=== PATIENT | male | born 1945 | race Caucasian/White ===

== ENCOUNTER → 2020-11-18 | Outpatient (CLI) | payer MEDICARE ==
[~2020-11-18] MED LIST: ALFU10TA PO; BENA1TAB11 PO; CALC200T3 PO; SIMV40TA20 PO; VIT1CAPS42 PO; aspirin PO; magnesium PO
[2020-11-18 10:41] LABS: BASOPHILS % (AUTO) 1 % (0-1); EOSINOPHILS % (AUTO) 2 % (1-7); LYMPHOCYTES % (AUTO) 21 % (22-44); MD NO; MEAN CORPUSCULAR HEMOGLOBIN 33.3 pg (27.5-34.5); MEAN CORPUSCULAR HGB CONC 34.3 g/dL (33.2-36.2); MEAN PLATELET VOLUME 7.7 fL (7.4-10.4); MONOCYTES % (AUTO) 11 % (2-9); NEUTROPHILS % (AUTO) 65 % (42-75); PLATELET COUNT 187 x10^3/uL (130-400); RED BLOOD COUNT 4.18 x10^6/uL (4.38-5.82)
[2020-11-18 10:43] LABS: MICROSCOPIC NOT IND
[2020-11-18 10:49] LABS: ALBUMIN 3.8 g/dL (3.4-5.0); ANION GAP 3 mmol/L (5-15); CALCIUM 8.7 mg/dL (8.5-10.1); CHLORIDE 112 mmol/L (98-107)
[2020-11-18 10:52] LABS: ALANINE AMINOTRANSFERASE 24 U/L (12-78); ALKALINE PHOSPHATASE 41 U/L (45-117); BILIRUBIN,TOTAL 1.5 mg/dL (0.2-1.0); CREATININE 1.12 mg/dL (0.7-1.3); INTERNATIONAL NORMALIZED RATIO 1.06 (0.93-1.1); PROTHROMBIN TIME 11.3 Seconds (9.6-11.5); TOTAL PROTEIN 6.7 g/dL (6.4-8.2)
== END | disposition home or self-care (01) ==
LOC: STAR 08:57
PROVIDERS: ATTEND Urology
DX: Z01.818 Encounter for other preprocedural examination (principal); N40.1 Benign prostatic hyperplasia with lower urinary tract symptoms; I44.0 Atrioventricular block, first degree; I44.4 Left anterior fascicular block; R00.1 Bradycardia, unspecified; R94.31 Abnormal electrocardiogram [ECG] [EKG]; Z20.822 Contact with and (suspected) exposure to COVID-19
CPT/HCPCS: 36415; 80053; 81003; 85025; 85610; 85730; 87086; 93005; U0003; U0005

== ENCOUNTER 2020-11-24 09:49 | Day surgery (SDC) | payer MEDICARE ==
[~2020-11-24] VITALS: Ht 182.9 cm; Wt 78.7 kg
[~2020-11-24 09:49] MED LIST changes: +CEFAZOLIN 1,000 MG ONE; +FENTANYL PF 250 MCG/5ML ONE; +PROPOFOL 10 MG/ML, 20ML ONE
[2020-11-24 10:24] VITALS: BP 179/89
[2020-11-24] MEDS ORDERED: CHLORHEXIDINE 15 ML UDC ONE (10:28)
[2020-11-24] MEDS ORDERED: CHLORHEXIDINE 15 ML UDC PO ONE (10:30)
[2020-11-24] MEDS ORDERED: LACTATED RINGERS 1,000 ML IV SCH (10:30)
[2020-11-24] MEDS ORDERED: PROPOFOL 10 MG/ML, 20ML ONE ×2 (11:41→12:31)
[2020-11-24] MEDS ORDERED: LABETALOL 5MG/ML, 20ML IV PRN (12:00)
[2020-11-24] MEDS ORDERED: HYDROmorphone 1 MG/ML, 1ML INJ IVPush PRN (12:00)
[2020-11-24] MEDS ORDERED: OXYcodone 5 MG/5 ML ORAL.SOL UDC PO PRN (12:00)
[2020-11-24] MEDS ORDERED: morphine SULFATE 10 MG/ML, 1ML IVPush PRN (12:00)
[2020-11-24] MEDS ORDERED: hydrALAzine 20 MG/ML, 1ML IV PRN (12:00)
[2020-11-24] MEDS ORDERED: FENTANYL PF 100 MCG/2ML IV PRN (12:00)
[2020-11-24] MEDS ORDERED: ACETAMINOPHEN 325 MG TABLET PO PRN (12:00)
[2020-11-24] MEDS ORDERED: ONDANSETRON 2MG/ML, 2ML IVPush PRN (12:00)
[2020-11-24] MEDS ORDERED: MEPERIDINE/PF 25MG/0.5ML IVPush PRN (12:00)
[2020-11-24] MEDS ORDERED: CEFAZOLIN 1,000 MG ONE (12:31)
[2020-11-24] MEDS ORDERED: OPIUM/BELLADONNA SUPP.RECT 16.2-60 MG ONE (13:32)
[2020-11-24] MEDS ORDERED: FUROSEMIDE 20 MG/2 ML ONE (13:32)
[2020-11-24] MEDS ORDERED: ACETAMINOPHEN 650 MG/20.3 ML UDC ONE (14:15)
== END 2020-11-24 16:20 | disposition home or self-care (01) ==
LOC: OUT 09:49
PROVIDERS: ATTEND Urology
DX: N40.1 Benign prostatic hyperplasia with lower urinary tract symptoms (principal); N13.8 Other obstructive and reflux uropathy; I10 Essential (primary) hypertension; E78.5 Hyperlipidemia, unspecified; H40.9 Unspecified glaucoma; Z79.82 Long term (current) use of aspirin; Z79.899 Other long term (current) drug therapy; Z86.718 Personal history of other venous thrombosis and embolism
CPT/HCPCS: 52648; J0690; J1940; J2704; J3010; J7120